=== PATIENT | female | born 1975 | race Hispanic/Latino ===

== ENCOUNTER 2018-10-27 00:31 | Emergency (ER) | payer BC ==
[~2018-10-27] VITALS: Ht 162.6 cm; Wt 71.7 kg
[2018-10-27 00:57] VITALS: BP 139/70
[2018-10-27] MEDS ORDERED: ZOFRAN IV STA (01:16)
--- NOTE | 2018-10-27 01:20 | ER.PDOC ---
General Chief Complaint: Abdomen Pain Stated Complaint: ABD PAIN Time seen by MD: 01:12 Source: patient Exam Limitations: no limitations History of Present Illness Initial Comments Pt with RUQ pain for about 4 days, any food exacerbates the pain Timing/Duration: 1 week Severity/Quality: severe, cramping, sharpness Radiation: RUQ, back Associated Symptoms: nausea/vomiting Exacerbated by: food Relieved By: nothing Allergies: Coded Allergies: No Known Allergies (Unverified , 08/27/13) Past Medical History Medical History: no pertinent history Surgical History: hysterectomy LMP (females 10-50): hysterectomy Social History Smoking: non-smoker Alcohol Use: none Drug Use: none Constitutional: no symptoms reported EENTM: no symptoms reported Respiratory: no symptoms reported Cardiovascular: no symptoms reported Gastrointestinal: see HPI Genitourinary: no symptoms reported Musculoskeletal: no symptoms reported Skin: no symptoms reported Psychiatric/Neurological: no symptoms reported Endocrine: no symptoms reported Hematologic/Lymphatic: no symptoms reported Physical Exam General Appearance: No Apparent Distress, WD/WN HEENT: PERRL/EOMI, Normal ENT Inspection, TMs Normal, Pharynx Normal Neck: Non-Tender, Full Range of Motion, Supple, Normal Inspection Respiratory: chest non-tender, lungs clear, normal breath sounds, no respiratory distress, no accessory muscle use Cardiovascular: Normal Peripheral Pulses, Regular Rate, Rhythm, No Edema, No Gallop, No JVD, No Murmur Gastrointestinal: Normal Bowel Sounds, No Organomegaly, No Pulsatile Mass, Tenderness (RUQ) Back: Normal Inspection, No CVA Tenderness, No Vertebral Tenderness Extremities: Normal Range of Motion, Non-Tender, Normal Inspection, No Pedal Edema, No Calf Tenderness, Normal Capillary Refill, Pelvis Stable Neurologic/Psychiatric: manager quality systems II-XII NML as Tested, No Motor/Sensory Deficits, Alert, Normal Mood/Affect, Oriented x 3 Skin: Normal Color, Warm/Dry Lymphatic: No Adenopathy Results/Orders Results/Orders Orders - RENETTA OQUENDO MD Cbc With Auto Diff (10/27/18 01:16) Comprehensive Metabolic Panel (10/27/18 01:16) Amylase (10/27/18 01:16) Lipase (10/27/18 01:16) PT (10/27/18 01:16) Partial Thromboplastin Time. (10/27/18 01:16) Urinalysis (10/27/18 01:16) Saline Lock (10/27/18 01:16) Morphine Sulfate (Morphine Sulfate) (10/27/18 01:30) Ondansetron Hcl (Zofran) (10/27/18 01:16) Us Abdomen Limited (10/27/18 01:16) Course Sepsis Infection Criteria Pres: None O2 Sat by Pulse Oximetry: 97 Departure Time of Disposition: 03:17 Disposition: 01 HOME, SELF-CARE Impression: Primary Impression: Biliary colic Condition: Stable Patient Instructions: Abdominal Pain, Biliary Colic Referrals: PCP,UNKNOWN (PCP) PRIMARY CARE PROVIDER Duration or Time Spent with Pa: 20 RENETTA OQUENDO MD Oct 27, 2018 01:20
[2018-10-27] MEDS ORDERED: NS 1000ML 1,000 ML ONE (01:21)
[2018-10-27] MEDS ORDERED: ZOFRAN ONE (01:21)
[2018-10-27 01:22] LABS: BASOPHIL % 0.5 % (0.0-0.2); EOSINOPHIL % 0.5 % (0.0-5.0); HEMOGLOBIN 16.3 g/dL (12.0-15.0); LYMPHOCYTES # 3.1 10^3/uL (1.0-4.8); LYMPHOCYTES % 47.3 % (24.0-44.0); MEAN CELL HGB 30.8 pg (26-34); MEAN CELL HGB CONCENTRATION 34.9 g/dL (33-37); MEAN CORP VOLUME 88.3 fL (78-100); MEAN PLATELET VOLUME 9.7 fL (7.8-11.0); MONOCYTES # 0.6 10^3/uL (0.3-0.8); MONOCYTES % 9.3 % (5.0-12.0); NEUTROPHIL # 2.8 10^3/uL (1.8-7.7); NEUTROPHILS % 42.2 % (41.0-85.0); RED CELL DISTRIBUTION WIDTH 12.7 % (11.5-14.5); WHITE BLOOD CELL 6.5 10^3/uL (4.5-11.0)
[2018-10-27] MEDS ORDERED: NS 1000ML 1,000 ML IV ONE (01:30)
[2018-10-27] MEDS ORDERED: MORPHINE SULFATE IV PRN (01:30)
[2018-10-27 01:42] LABS: CALCIUM 9.7 mg/dL (8.4-10.5); CARBON DIOXIDE 26.8 mmol/L (20.0-32)
[2018-10-27 01:44] LABS: BILIRUBIN,URINE NEGATIVE (NEGATIVE); UROBILINOGEN,URINE NORMAL (NEGATIVE)
[2018-10-27 01:46] LABS: APPEARANCE,URINE CLEAR (CLEAR); UA COLOR YELLOW (YELLOW)
[2018-10-27 02:05] VITALS: BP 125/70
--- NOTE | 2018-10-27 02:29 | NUR ---
US Patient back from
--- NOTE | 2018-10-27 03:10 | DIREP ---
PROCEDURE:US ABDOMEN LIMITED(SINGLE ORGAN,QUAD) COMPARISON:None. INDICATIONS:ruq pain FINDINGS: LIVER:Echogenic liver suggesting fatty infiltration. BILIARY:Layering sludge. Gallbladder wall measures within normal limits at 2.5 mm. Common bile duct measures under 3 mm. Sonographic Aguilera sign is positive. No definite pericholecystic fluid. PANCREAS:Partially visualized. RIGHT KIDNEY:Normal. Measures 10.6 x 6.0 x 5.5 cm. OTHER:Negative. No ascites is identified. CONCLUSION:Layering sludge in the gallbladder. Positive sonographic Aguilera sign. No gallbladder wall thickening or pericholecystic fluid. Fatty liver. Dictated by: Camilo Valente MD on 10/27/2018 at 03:07 AM
[2018-10-27 03:17] VITALS: BP 123/67
--- NOTE | 2018-10-27 03:20 | NUR ---
IV IV removed, tip intact. Placed cottonball over IV site, Secured with coban. Instructed patient to remove coban when she arrived at home. Patient expressed understanding
[2018-10-27 03:28] VITALS: BP 123/67
== END 2018-10-27 03:25 | disposition home or self-care (01) ==
LOC: ER 00:31
DX: K80.50 Calculus of bile duct without cholangitis or cholecystitis without obstruction (principal); Z90.710 Acquired absence of both cervix and uterus
CPT/HCPCS: 36415; 76705; 80053; 81000; 82150; 83690; 85025; 85610; 85730; 87086; 96361; 96374; 96375; 99285; J2405; J7030